=== PATIENT | female | born 2005 | race Caucasian/White ===

== ENCOUNTER 2024-10-31 10:05 | Emergency (ER) | payer OTHER ==
[2024-10-31] MEDS ORDERED: dexAMETHasone 10 MG/ML VIAL ONE (10:29)
--- NOTE | 2024-10-31 10:29 | EDPHYS ---
Physician Documentation [facility] Name: Le Buchanan Age: 19 yrs Sex: Female : 2005 Arrival Date: 10/31/2024 Time: 10:05 Bed 18 Private MD: ED Physician Iron Villanueva HPI: 10/31 10:31 This 19 yrs old Female presents to ER via Ambulatory with complaints of Flu Symptoms. rt 10:31 Patient presents to the ED with 1.5 months of cough, nasal congestion, bilateral ear rt pain. Denies fever, chills. Denies other acute complaints at this time. She has not taken anything [id number]. Symptoms are mild in severity, no other aggravating relieving factors.. Historical: - Allergies: 10:17 PENICILLINS; ss - PMHx: 10:17 Depressive disorder; ss - PSHx: 10:17 Bilateral Feet; R elbow; ss - Infectious Disease History:: Denies. - Social history:: Smoking status: Patient denies any tobacco usage or history of. - Family history:: not pertinent. ROS: 10:31 Constitutional: Negative for fever, chills, and weight loss, Cardiovascular: Negative rt for chest pain, palpitations, and edema, Respiratory: Negative for shortness of breath, cough, wheezing, and pleuritic chest pain, Abdomen/GI: Negative for abdominal pain, nausea, vomiting, diarrhea, and constipation, MS/Extremity: Negative for injury and deformity, Skin: Negative for injury, rash, and discoloration, Neuro: Negative for headache, weakness, numbness, tingling, and seizure, 10:31 ENT: Positive for ear pain, rhinorrhea, Exam: 10:31 Constitutional: This is a well developed, well nourished patient who is awake, alert, rt and in no acute distress. Head/Face: Normocephalic, atraumatic. Chest/axilla: Normal chest wall appearance and motion. Nontender with no deformity. No lesions are appreciated. Cardiovascular: Regular rate and rhythm with a normal S1 and S2. No gallops, murmurs, or rubs. Normal PMI, no JVD. No pulse deficits. Respiratory: Lungs have equal breath sounds bilaterally, clear to auscultation and percussion. No rales, rhonchi or wheezes noted. No increased work of breathing, no retractions or nasal flaring. Abdomen/GI: Soft, non-tender, with normal bowel sounds. No distension or tympany. No guarding or rebound. No evidence of tenderness throughout. Skin: Warm, dry with normal turgor. Normal color with no rashes, no lesions, and no evidence of cellulitis. MS/ Extremity: Pulses equal, no cyanosis. Neurovascular intact. Full, normal range of motion. Neuro: Awake and alert, GCS 15, oriented to person, place, time, and situation. Cranial nerves II-XII grossly intact. Motor strength 5/5 in all extremities. Sensory grossly intact. Cerebellar exam normal. Normal gait. Psych: Awake, alert, with orientation to person, place and time. Behavior, mood, and affect are within normal limits. 10:31 ENT: TMs clear bilaterally, no posterior pharyngeal erythema, edema, exudate. Vital Signs: 10:16 BP 117 / 67; Pulse 71; Resp 14; Temp 97.6(TE); Pulse Ox 98% on R/A; Weight 72.57 kg; ss Height 5 ft. 4 in. ; Pain 5/10; 10:16 Body Mass Index 27.46 (72.57 kg, 162.56 cm) ss 10:16 Pain Scale: Adult ss MDM: 10:18 Medical Screening Exam initiated rt 10:31 Differential Diagnosis Allergic rhinitis, viral syndrome. Data reviewed: vital signs, rt nurses notes. I considered the following discharge prescriptions or medication management in the emergency department Medications were administered in the Emergency Department. See MAR. Test considered but Not performed: Other Details Symptoms have been present for more than a month, do not believe that viral swabs are indicated. Lungs are clear to auscultation bilaterally, low suspicion for pneumonia, chest x-ray not indicated. Counseling: I had a detailed discussion with the patient and/or guardian regarding smoking cessation. Administered Medications: 10:40 Drug: Dexamethasone IM 10 mg IM once Route: IM; Site: right deltoid; kc6 Disposition Summary: 10/31/24 10:28 Discharge Ordered Notes: Location: Home rt Problem: an ongoing problem rt Symptoms: are unchanged rt Condition: Stable rt Diagnosis - Nasal congestion rt Followup: rt - With: Private Physician - When: 2 - 3 days - Reason: Discharge Instructions: - Discharge Summary Sheet rt - Allergic Rhinitis, Adult rt - Steps to Quit Smoking rt - Smoking Tobacco Information, Adult rt Forms: - Medication Reconciliation Form rt - Antibiotic Education rt - Prescription Opioid Use rt - Patient Portal Instructions rt - Leadership Thank You Letter rt Signatures: Maddy Goetz RN RN ss Natasha Salvador RN RN kc6 Iron Villanueva MD MD rt
--- NOTE | 2024-10-31 10:29 | ER ---
Nurse's Notes [facility] Name: Le Buchanan Age: 19 yrs Sex: Female : 2005 Arrival Date: 10/31/2024 Time: 10:05 Bed 18 Private MD: Diagnosis: Nasal congestion Presentation: 10/31 10:16 Chief complaint: Patient states: cough, nasal drainage and achy ears that began 1.5 ss months ago. Coronavirus screen: Client denies travel out of the [place] in the last 14 days. Ebola Screen: Patient denies exposure to infectious person. Patient denies travel to an Ebola-affected area in the 21 days before illness onset. Initial Sepsis Screen: Does the patient meet any 2 criteria? No. Patient's initial sepsis screen is negative. Does the patient have a suspected source of infection? No. Patient's initial sepsis screen is negative. Risk Assessment: Do you want to hurt yourself or someone else? Patient reports no desire to harm self or others. Onset of symptoms was September 2024. 10:16 Method Of Arrival: Ambulatory ss 10:16 Acuity: KAY 4 ss Historical: - Allergies: 10:17 PENICILLINS; ss - PMHx: 10:17 Depressive disorder; ss - PSHx: 10:17 Bilateral Feet; R elbow; ss - Infectious Disease History:: Denies. - Social history:: Smoking status: Patient denies any tobacco usage or history of. - Family history:: not pertinent. Screenin:40 [facility] ED Fall Risk Assessment (Adult) History of falling in the last 3 months, kc6 including since admission No falls in past 3 months (0 pts) Confusion or Disorientation No (0 pts) Intoxicated or Sedated No (0 pts) Impaired Gait No (0 pts) Mobility Assist Device Used No (0 pt) Altered Elimination No (0 pt) Score/Fall Risk Level 0 - 2 = Low Risk Oriented to surroundings, Maintained a safe environment, Educated pt \T\ family on fall prevention, incl call for assistance when getting out of bed. Abuse screen: Denies threats or abuse. Denies injuries from another. Nutritional screening: No deficits noted. Tuberculosis screening: No symptoms or risk factors identified. Assessment: 10:40 General: Appears in no apparent distress. comfortable, well groomed, well developed, kc6 Behavior is calm, cooperative, appropriate for age. Pain: Complains of pain in right ear and left ear Quality of pain is described as aching, dull. Neuro: Level of Consciousness is awake, alert, obeys commands, Oriented to person, place, time, situation, Appropriate for age. Cardiovascular: Capillary refill < 3 seconds. Respiratory: Reports cough that is persistent. GI: No signs and/or symptoms were reported involving the gastrointestinal system. : No signs and/or symptoms were reported regarding the genitourinary system. EENT: Reports nasal congestion nasal discharge. Derm: No signs and/or symptoms reported regarding the dermatologic system. Skin is intact, is healthy with good turgor, Skin is pink, warm \T\ dry. Musculoskeletal: No signs and/or symptoms reported regarding the musculoskeletal system. Circulation, motion, and sensation intact. Range of motion: intact in all extremities. Vital Signs: 10:16 BP 117 / 67; Pulse 71; Resp 14; Temp 97.6(TE); Pulse Ox 98% on R/A; Weight 72.57 kg; ss Height 5 ft. 4 in. ; Pain 5/10; 10:16 Body Mass Index 27.46 (72.57 kg, 162.56 cm) ss 10:16 Pain Scale: Adult ss ED Course: 10:09 Patient arrived in ED. im 10:10 Iron Villanueva MD is Attending Physician. rt 10:16 Natasha Salvador, LEENA is Primary Nurse. the [facility] 10:17 Triage completed. ss 10:17 Arm band placed on right wrist. ss 10:40 Patient has correct armband on for positive identification. Bed in low position. Call kc6 light in reach. Side rails up X 1. Adult w/ patient. Pulse ox on. NIBP on. Door closed. Noise minimized. Lights dimmed. Pillow given. Verbal reassurance given. 10:40 No provider procedures requiring assistance completed. Patient did not have IV access kc6 during this emergency room visit. Patient maintains SpO2 saturation greater than 95% on room air. Administered Medications: 10:40 Drug: Dexamethasone IM 10 mg IM once Route: IM; Site: right deltoid; kc6 Medication: 10:41 VIS not applicable for this client. kc6 Outcome: 10:28 Discharge ordered by . rt 10:41 Discharged to home ambulatory, with family, kc6 10:41 Condition: good 10:41 Discharge instructions given to patient, Instructed on discharge instructions, follow up and referral plans. Demonstrated understanding of instructions, follow-up care, 10:41 Patient left the ED. kc6 Signatures: Maddy Goetz, RN Natasha Tapia RN RN kc6 Iron Villanueva MD MD rt Conchita Garcia
[2024-10-31 10:54] VITALS: BP 117/67; TEMP 97.6; O2SAT 98
== END 2024-10-31 10:41 | disposition home or self-care (01) ==
LOC: ER 10:05
DX: R09.81 Nasal congestion (principal); R05.9 Cough, unspecified; H92.03 Otalgia, bilateral
CPT/HCPCS: 96372; 99284; J1100

== ENCOUNTER 2024-12-21 21:08 | Emergency (ER) | payer OTHER ==
--- NOTE | 2024-12-21 22:14 | RAD REPORT ---
1St Trimest Single 1St Fetus HISTORY: pain, bleeding COMPARISON: None TECHNIQUE: Multiple grayscale and color Doppler images were obtained in a transabdominal and transvag inal pelvic ultrasound. Spectral analysis of the Doppler waveforms of the ovaries were performed. FINDINGS: UTERUS: There is an intrauterine gestational sac. This contains a yolk sac and suspected pole. [place]-rump length: 0.2 cm which estimates gestational age at 5 week 5 day. No heart tones identified.. No evidence of subchorionic hemorrhage. No free fluid is seen in the pelvis. RIGHT OVARY: Normal flow without focal mass. LEFT OVARY: Normal flow without focal mass. IMPRESSION: Gestational sac identified with yolk sac and suspected pole measuring 5 week 4 day. No he art tones identified which is probably related to early dates but can be reassessed on short-term follow-up. Bilateral ovarian blood flow.
[2024-12-21 22:35] LABS: Absolute Basophils 0.1 K/uL (0-0.5); Absolute Eosinophils 0.2 K/uL (0-0.5); Absolute Lymphocytes (CBC) 3.5 K/uL (0.7-4.9); Absolute Monocytes 0.6 K/uL (0.1-1.3); Absolute Neutrophil 6.4 K/uL (1.8-8.0); Basophils % 0.8 % (0-1.3); Eosinophils % 2.2 % (0-4.4); Hematocrit 34.9 % (36.0-45.0); Hemoglobin 12.1 g/dL (12.0-15.0); Lymphocytes % 32.2 % (15.3-44.8); MCH 28.1 pg (27.0-35.0); MCHC 34.6 g/dL (32.0-36.0); MCV 81.1 fL (80-100); MPV 9.1 fL (7.6-11.3); Monocytes % 5.8 % (3.3-12.3); Nucleated Red Blood Cells % 0.1 % (0-0); Platelets 245 thou/uL (152-406)
[2024-12-21 23:23] LABS: Anion Gap 7.9 mEq/L (5.0-15.0); Potassium 2.9 mEq/L (3.5-5.1)
--- NOTE | 2024-12-21 23:38 | ER ---
Nurse's Notes [facility] Name: Le Buchanan Age: 19 yrs Sex: Female : 2005 Arrival Date: 12/21/2024 Time: 21:08 Bed 12 Private MD: Diagnosis: related conditions, unspecified, first trimester;Hypokalemia Presentation: 12/21 21:19 Chief complaint: Patient states: Lower abdominal pain onset yesterday. Pt reports that cm10 she is having some spotting. Pt denies nausea,vomiting, diarrhea or urinary symptoms. Pt reports that she is , unknown how far along. Coronavirus screen: Client denies travel out of the [place] in the last 14 days. Ebola Screen: Patient denies travel to an Ebola-affected area in the 21 days before illness onset. Initial Sepsis Screen: Does the patient meet any 2 criteria? No. Patient's initial sepsis screen is negative. Does the patient have a suspected source of infection? No. Patient's initial sepsis screen is negative. Risk Assessment: Do you want to hurt yourself or someone else? Patient reports no desire to harm self or others. Onset of symptoms was December 21, 2024. 21:19 Method Of Arrival: Ambulatory cm10 21:19 Acuity: KAY 3 cm10 Triage Assessment: 21:23 General: Appears in no apparent distress. comfortable, Behavior is calm, cooperative. cm10 Pain: Complains of pain in suprapubic area Pain currently is 4 out of 10 on a pain scale. Quality of pain is described as crampy. Neuro: No deficits noted. Level of Consciousness is awake, alert, obeys commands, Oriented to person, place, time, situation, Appropriate for age. Respiratory: No deficits noted. Airway is patent Respiratory effort is even, unlabored, Respiratory pattern is regular, symmetrical. 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 - Infectious Disease History:: Denies. - Social history:: Smoking status: unknown. - Family history:: not pertinent. Screenin:30 [facility] ED Fall Risk Assessment (Adult) History of falling in the last 3 months, br2 including since admission No falls in past 3 months (0 pts) Confusion or Disorientation No (0 pts) Intoxicated or Sedated No (0 pts) Impaired Gait No (0 pts) Mobility Assist Device Used No (0 pt) Altered Elimination No (0 pt) Score/Fall Risk Level 0 - 2 = Low Risk Oriented to surroundings. Abuse screen: Denies threats or abuse. Denies injuries from another. Nutritional screening: No deficits noted. Tuberculosis screening: No symptoms or risk factors identified. Assessment: 22:28 Reassessment: Patient and/or family updated on plan of care and expected duration. Pain br2 level reassessed. Patient is alert, oriented x 3, equal unlabored respirations, skin warm/dry/pink. General: Appears in no apparent distress. distressed, Behavior is calm, cooperative. 22:29 GI: Abdomen is flat, Reports lower abdominal pain, upper abdominal pain. br2 22:29 : Reports vaginal bleeding that is. br2 22:29 : Reports vaginal bleeding that is spotty. br2 Vital Signs: 21:23 BP 104 / 62; Pulse 77; Resp 18; Temp 97.7(IR); Pulse Ox 100% on R/A; Weight 74.84 kg; cm10 Height 5 ft. 4 in. ; Pain 4/10; 21:23 Body Mass Index 28.32 (74.84 kg, 162.56 cm) cm10 21:23 Pain Scale: Adult cm10 ED Course: 21:12 Patient arrived in ED. mr 21:13 Iron Villanueva MD is Attending Physician. rt 21:20 Triage completed. cm10 21:20 Arm band placed on right wrist. Patient placed in waiting room. cm10 22:03 US Transvaginal Ob In Process Unspecified. EDMS 22:03 1St Trimest Single 1St Fetus In Process Unspecified. EDMS 22:28 Inserted saline lock: 20 gauge in left antecubital area, using aseptic technique. Blood br2 collected. Flushed with 10 mL NS. 22:29 Lorena Hummel, LEENA is Primary Nurse. br2 22:30 Patient has correct armband on for positive identification. Bed in low position. Call br2 light in reach. Side rails up X 1. Provided Education on: plan of care. 23:13 IV discontinued, intact, bleeding controlled, No redness/swelling at site. Pressure br2 dressing applied, PT REQUESTED TO REMOVE IV. 23:46 No provider procedures requiring assistance completed. br2 Administered Medications: 23:23 Drug: Potassium PO Effervescent Tablet 50 mEq PO once; dissolve in 4 ounces of water or br2 juice Route: PO; 23:46 Follow up: Response: Medication administered at discharge. br2 Outcome: 23:38 Discharge ordered by MD. rt 23:46 Discharged to home ambulatory, br2 23:46 Condition: stable 23:46 Discharge instructions given to patient, Instructed on discharge instructions, follow up and referral plans. Demonstrated understanding of instructions, follow-up care, medications, 23:46 Patient left the ED. br2 Signatures: Dispatcher [employer] EDMS Laura Mayes, Reg Reg mr Iron Villanueva MD MD rt Chayito Echols RN RN cm10 Lorena Hummel RN RN br2 Corrections: (The following items were deleted from the chart) 21:22 21:20 LMP 10/2024, unknown cm10 cm10 12/22 00:06 00:05 No provider procedures requiring assistance completed. br2 br2 00:08 00:07 Patient left the ED. br2 br2
--- NOTE | 2024-12-21 23:39 | EDPHYS ---
Physician Documentation [facility] Name: Le Buchanan Age: 19 yrs Sex: Female : 2005 Arrival Date: 12/21/2024 Time: 21:08 Bed 12 Private MD: ED Physician Iron Villanueva HPI: 12/21 23:02 This 19 yrs old Female presents to ER via Ambulatory with complaints of , rt Abdominal Cramping. 23:02 Patient presents to the ED with abdominal cramping, vaginal spotting starting rt yesterday. Last menstrual period was in October, reports having a positive test. Denies other acute complaints at this time, symptoms are moderate in severity, no other aggravating or alleviating factors.. 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 - Infectious Disease History:: Denies. - Social history:: Smoking status: unknown. - Family history:: not pertinent. ROS: 23:02 Constitutional: Negative for fever, chills, and weight loss, Cardiovascular: Negative rt for chest pain, palpitations, and edema, Respiratory: Negative for shortness of breath, cough, wheezing, and pleuritic chest pain, MS/Extremity: Negative for injury and deformity, Skin: Negative for injury, rash, and discoloration, Neuro: Negative for headache, weakness, numbness, tingling, and seizure, 23:02 Abdomen/GI: Positive for abdominal pain, nausea, 23:02 : Positive for vaginal bleeding, Negative for burning with urination, Exam: 23:02 Constitutional: This is a well developed, well nourished patient who is awake, alert, rt and in no acute distress. Head/Face: Normocephalic, atraumatic. Chest/axilla: Normal chest wall appearance and motion. Nontender with no deformity. No lesions are appreciated. Cardiovascular: Regular rate and rhythm with a normal S1 and S2. No gallops, murmurs, or rubs. Normal PMI, no JVD. No pulse deficits. Respiratory: Lungs have equal breath sounds bilaterally, clear to auscultation and percussion. No rales, rhonchi or wheezes noted. No increased work of breathing, no retractions or nasal flaring. Abdomen/GI: Soft, non-tender, with normal bowel sounds. No distension or tympany. No guarding or rebound. No evidence of tenderness throughout. Skin: Warm, dry with normal turgor. Normal color with no rashes, no lesions, and no evidence of cellulitis. MS/ Extremity: Pulses equal, no cyanosis. Neurovascular intact. Full, normal range of motion. Neuro: Awake and alert, GCS 15, oriented to person, place, time, and situation. Cranial nerves II-XII grossly intact. Motor strength 5/5 in all extremities. Sensory grossly intact. Cerebellar exam normal. Normal gait. Vital Signs: 21:23 BP 104 / 62; Pulse 77; Resp 18; Temp 97.7(IR); Pulse Ox 100% on R/A; Weight 74.84 kg; cm10 Height 5 ft. 4 in. ; Pain 4/10; 21:23 Body Mass Index 28.32 (74.84 kg, 162.56 cm) cm10 21:23 Pain Scale: Adult cm10 MDM: 21:19 Medical Screening Exam initiated rt 12/22 00:08 Differential diagnosis: Threatened AB, early , ectopic . Data rt reviewed: vital signs, nurses notes, lab test result(s), radiologic studies. Counseling: I had a detailed discussion with the patient and/or guardian regarding the historical points, exam findings, and any diagnostic results supporting the discharge/admit diagnosis, lab results, radiology results, the need for outpatient follow up, to return to the emergency department if symptoms worsen or persist or if there are any questions or concerns that arise at home. 12/21 21: Order name: Abo/rh Typing; Complete Time: 23:25 rt 12/21 20: Order name: Basic Metabolic Panel; Complete Time: 23:25 rt 12/21 20: Order name: CBC with Diff; Complete Time: 23:25 rt 12/21 20: Order name: Quantitative Hcg; Complete Time: 23:25 rt 12/21 20:23 Order name: US Transvaginal Ob; Complete Time: 22:19 rt 12/21 22:03 Order name: 1St Trimest Single 1St Fetus; Complete Time: 22:19 EDMS 12/21 21:23 Order name: IV Saline Lock; Complete Time: 23:39 rt 12/21 21:23 Order name: Labs collected and sent; Complete Time: 23:40 rt 12/21 21:23 Order name: NPO; Complete Time: 23:40 rt Administered Medications: 12/21 23:23 Drug: Potassium PO Effervescent Tablet 50 mEq PO once; dissolve in 4 ounces of water or br2 juice Route: PO; 23:46 Follow up: Response: Medication administered at discharge. br2 Disposition Summary: 12/21/24 23:38 Discharge Ordered Notes: Location: Home rt Problem: new rt Symptoms: have improved rt Condition: Stable rt Diagnosis - related conditions, unspecified, first trimester rt - Hypokalemia rt Followup: rt - With: Private Physician - When: 2 - 3 days - Reason: Discharge Instructions: - Discharge Summary Sheet rt - Potassium Content of Foods rt - First Trimester of rt - Hypokalemia rt Forms: - Medication Reconciliation Form rt - Antibiotic Education rt - Prescription Opioid Use rt - Patient Portal Instructions rt - Leadership Thank You Letter rt Prescriptions: - potassium chloride 20 mEq Oral tablet, extended release - take 1 tablet ORAL route daily; 5 tablet; Refills: 0, Product Selection rt Permitted Signatures: Dispatcher [employer] EDMS Iron Villanueva MD MD rt Chayito Echols RN RN cm10 Lorena Hummel, RN RN br2 Corrections: (The following items were deleted from the chart) 21:24 21:23 ABO/RH TYPING+BB.LAB.BRZ ordered. EDMS EDMS 21:24 21:23 BASIC METABOLIC PANEL+C.LAB.BRZ ordered. EDMS EDMS 21:24 21:23 CBC+H.LAB.BRZ ordered. EDMS EDMS 21:24 21:23 QUANTITATIVE HCG+C.LAB.BRZ ordered. EDMS EDMS 21:24 21:24 Transvaginal Ob+US.RAD.BRZ ordered. EDMS EDMS
[2024-12-21] MEDS ORDERED: POTASSIUM 25 MEQ EFFERV TAB ONE (23:43)
[2024-12-22 00:32] VITALS: BP 104/62; TEMP 97.7; O2SAT 100
== END 2024-12-22 00:07 | disposition home or self-care (01) ==
LOC: ER 21:08
DX: O99.281 Endocrine, nutritional and metabolic diseases complicating pregnancy, first trimester (principal); E87.6 Hypokalemia; Z3A.01 Less than 8 weeks gestation of pregnancy
CPT/HCPCS: 36415; 76801; 76817; 80048; 84702; 85025; 86900; 86901; 99284